=== PATIENT | male | born 1950 | race Caucasian/White ===

== ENCOUNTER 2025-07-12 11:36 | Emergency (ER) | payer MEDICARE, OTHER, SELFPAY ==
[2025-07-12 12:09] VITALS: BP 172/81; PULSE 74; RESP 16; TEMP 37.3; O2SAT 99; BMI 21.2
--- NOTE | 2025-07-12 14:23 | ED_ITS ---
HPI - Extremity Problem <Carissa Roy PA-C - Last Filed: 07/12/25 19:10> General Chief complaint: Extremity Problem,Nontraumatic Stated complaint: Left foot pain Time Seen by Provider: 07/12/25 11:39 Source: patient Mode of arrival: Family Vehicle History of Present Illness HPI Narrative: Mr. Tam is a very pleasant 75-year-old gentleman with no reported past medical history, taking no medications, who presents to the emergency department for left ankle pain x3 days. Patient states for 3 months he has been dealing with an ulcer on the lateral aspect of his left ankle and about 3 days ago he developed an ulcer on the medial aspect of his ankle. He is having pain with movement of the ankle and concern that these areas are infected. He reports that he started to feel ?sick? a few days ago which she describes as fatigue. Tried to see his primary care doctor for these concerns however the he can not see them until September. Denies chest pain, shortness of breath, fevers, trauma. 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 Related Data Previous Rx's ?Medication ?Instructions ?Recorded apixaban 5 mg tablet (Eliquis) See Rx Instructions .Ro [place] 07/12/25 .COMPLEX #74 tabs cephalexin 500 mg capsule 500 mg PO QID 7 days #28 cap s 07/12/25 Allergies Allergy/AdvReac Type Severity Reaction Status Date / Time No Known Drug Allergies Allergy Verified 07/12/25 12:14 Review of Systems <Carissa Roy PA-C - Last Filed: 07/12/25 19:10> Review of Systems ROS Unobtainable: All systems reviewed & are unremarkable except as noted in HPI and below Exam <Carissa Roy PA-C - Last Filed: 07/12/25 19:10> Narrative Exam Narrative: GENERAL: 75 year old patient appears stated age. Well-developed patient, in no acute distress. HEAD: Atraumatic. Normocephalic. EYES: No scleral icterus. No injection or drainage. NECK: Trachea midline. Cervical ROM intact. CARDIOVASCULAR: Regular rate and rhythm. RESPIRATORY: ?Nonlabored respirations. ?Speaking in clear, full sentences. ?Clear to auscultation. Breath sounds equal bilaterally. No wheezes, rales, or rhonchi. ? EXTREMITIES: Mild edema of the left lower extremity around the medial and lateral malleolus. No proximal edema or pitting edema of the leg. Just distal to the lateral and medial malleolus there are superficial ulcerations, however the medial ulceration does have some minimal surrounding erythema and tenderness, no active drainage. No erythema or streaking up the leg. 2+ DP and PT pulses bilaterally with brisk cap refill in the toes. Patient does have some chronic darkening of the skin on the left lower extremity. NEURO: AOx3. ?Clear speech. ?Moves all 4 extremities appropriately. Initial Vital Signs Initial Vital Signs: Vital Signs Temperature 99.2 F 07/12/25 12:09 Pulse Rate 74 07/12/25 12:09 Respiratory Rate 16 07/12/25 12:09 Blood Pressure 172/81 H 07/12/25 12:09 Pulse Oximetry 99 07/12/25 12:09 Oxygen Delivery Method Room Air 07/12/25 12:09 <Adalberto Rubio MD - Last Filed: 07/13/25 07:03> Initial Vital Signs Initial Vital Signs: Vital Signs Temperature 99.2 F 07/12/25 12:09 Pulse Rate 74 07/12/25 12:09 Respiratory Rate 16 07/12/25 12:09 Blood Pressure 172/81 H 07/12/25 12:09 Pulse Oximetry 99 07/12/25 12:09 Oxygen Delivery Method Room Air 07/12/25 12:09 Course <Carissa Roy PA-C - Last Filed: 07/12/25 19:10> Orders Ordered: ED Orders 07/12/25 14:34 US periph venous low extrem lt Stat XR ankle LT min 3V Stat 07/12/25 14:39 Consult to Wound Care Stat 07/12/25 15:44 CBC Auto Diff [Complete Blood Count AUTO DIFF] Stat CMP [Comprehensive Metabolic Panel] Stat PT [Prothrombin Time INR] Stat PTT Partial Thromboplastin [place] Stat Vital Signs Vital signs: Vital Signs - 8 hr 07/12/25 12:09 07/12/25 17:49 Temperature 99.2 F Pulse Rate 74 58 L Respiratory Rate 16 16 Blood Pressure 172/81 H 179/79 H Pulse Oximetry 99 98 Oxygen Delivery Method Room Air Room Air <Adalberto Rubio MD - Last Filed: 07/13/25 07:03> Orders Ordered: ED Orders 07/12/25 14:34 US periph venous low extrem lt Stat XR ankle LT min 3V Stat 07/12/25 14:39 Consult to Wound Care Stat 07/12/25 15:44 CBC Auto Diff [Complete Blood Count AUTO DIFF] Stat CMP [Comprehensive Metabolic Panel] Stat PT [Prothrombin Time INR] Stat PTT Partial Thromboplastin [place] Stat Vital Signs Vital signs: Vital Signs - 8 hr 07/12/25 12:09 07/12/25 17:49 Temperature 99.2 F Pulse Rate 74 58 L Respiratory Rate 16 16 Blood Pressure 172/81 H 179/79 H Pulse Oximetry 99 98 Oxygen Delivery Method Room Air Room Air MDM - Extremity (Nontraumatic) <Carissa Roy PA-C - Last Filed: 07/12/25 19:10> Lab Data 07/12/25 15:44 07/12/25 15:44 Labs: Lab Results 07/12/25 Range/Units 15:44 WBC 5.5 (4.5-11.0) X10^3/uL RBC 4.60 (4.5-5.9) X10^6/uL Hgb 13.5 (13.5-17.5) g/dL Hct 40.0 L (41-53) % MCV 86.9 (80-100) fL MCH 29.4 (26-34) PG MCHC 33.9 (30-36) % RDW 14.4 (11.6-14.8) % Plt Count 238 (150-400) X10^3/uL Neut % (Auto) 63.2 (50-75) % Lymph % (Auto) 22.6 L (25-40) % [place] % (Auto) 10.7 (3-14) % Eos % (Auto) 1.9 L (2-4) % Baso % (Auto) 1.6 (0-2) % Neut # (Auto) 3500 (8547-2091) /uL Lymph # (Auto) 1200 (9783-0903) /uL [place] # (Auto) 600 (0-900) /uL Eos # (Auto) 100 (0-450) /uL Baso # (Auto) 100 (0-100) /uL PT 12.4 (9.4-12.5) SECONDS INR 1.1 (0.9-1.3) APTT 28 (25.1-36.5) SECONDS Sodium 140 (137-145) mmol/L Potassium 4.3 (3.4-5.1) mmol/L Chloride 105 (98-107) mmol/L Carbon Dioxide 28 (22-32) mmol/L BUN 12 (9-20) mg/dL Creatinine 0.93 (0.66-1.25) mg/dL Estimated GFR > 60 (>60) mL/min BUN/Creatinine Ratio 12.9 (6-22) Glucose 89 (70-99) mg/dL Calcium 9.0 (8.4-10.2) mg/dL Total Bilirubin 0.4 (0.2-1.3) mg/dL AST 22 (17-59) IU/L ALT 12 (<50) IU/L Alkaline Phosphatase 52 (38-126) U/L Total Protein 7.2 (6.3-8.2) g/dL Albumin 4.1 (3.5-5.0) g/dL Globulin 3.1 (1.7-4.1) g/dL Albumin/Globulin Ratio 1.3 (1.0-2.8) Imaging Data LLE US: Radiologist's Impression: PROCEDURE: US PERIPH VENOUS LOW EXTREM LT INDICATIONS: dvt? pvd? cellulitis? unilateral pain and swelling TECHNIQUE: Real-time imaging, as well as color and pulse Doppler interrogation, were performed of the lower extremity deep veins from the inguinal ligament to the popliteal fossa, with documentation of the visualized calf veins. COMPARISON: [facility], CR, XR ANKLE LT MIN 3V, 07/12/2025, 14:30. FINDINGS: Nonocclusive, thread-like deep venous thrombosis can be seen involving the majority of the femoral vein as well as the popliteal vein. Distal lower extremity edema can be seen. IMPRESSION: Nonocclusive, throughout like deep venous thrombosis can be seen, which is likely chronic. Dictated by: Thai Poe M.D. on 07/12/2025 at 14:23 Approved by: Thai Poe M.D. on 07/12/2025 at 14:24 Left Ankle XR: Radiologist's Impression: PROCEDURE: XR ANKLE LT MIN 3V INDICATIONS: nontraumatic pain; medial and lateral ulcers TECHNIQUE: 3 views of the ankle were acquired. COMPARISON: None. FINDINGS: Bones: No fractures or dislocations. Ankle mortise is normally aligned. No suspicious bony lesions. The talar dome demonstrates no beka abnormality. Soft tissues: No tibiotalar joint effusion. Achilles tendon appears normal. IMPRESSION: No significant plain film abnormality is seen. Dictated by: Thai Poe M.D. on 07/12/2025 at 14:07 Approved by: Thai Poe M.D. on 07/12/2025 at 14:08 [facility] Narrative Medical decision making narrative: 75-year-old gentleman with no reported past medical history, taking no medications, who presents to the emergency department for left ankle pain x3 days. Differential Diagnosis includes but is not limited to peripheral vascular disease, DVT, cellulitis, skin ulcer, etc. On exam patient is in no acute distress, nontoxic appearing, vital signs appropriate except for mildly elevated blood pressure. His left lower extremity has some very minimal edema around the ankle however he does have superficial ulceration below the lateral malleolus and the medial malleolus, the ulceration around the medial malleolus is quite erythematous and tender. We will obtain x- ray left ankle, vascular ultrasound. Spoke with import/export analyst, it appears patient does have DVT, we will add on CBC, CMP, coags to check patient's baseline labs before initiating Eliquis. Ankle x-ray is normal. Left lower extremity peripheral ultrasound reveals nonocclusive thread-like deep venous thrombosis seen involving the majority of the femoral vein as well as the popliteal vein, which is likely chronic. Patient does not have significant left lower extremity edema concerning for May- Thurner syndrome. Discussed imaging with the attending ER physician, we will treat with Eliquis 10 mg b.i.d. x7 days followed by 5 mg b.i.d. we will also treat patient with cephalexin for suspected mild cellulitis surrounding medial malleolus ulcer, referral was also placed to wound care for follow up. Labs reveal normal WBC count, normal hemoglobin 13.5, normal platelets 238. Normal coags. Good renal function with a BUN 12, creatinine 0.93, GFR greater than 60. Discussed all lab work and imaging results with the patient. Both him and his verbalized understanding of treatment for both DVT and cellulitis. Discussed wound care, supportive therapy including rest, elevation. Discussed strict ER return precautions. They verbalized understanding of all information and happy with the plan. He is ambulatory and stable for discharge home. <Adalberto Rubio MD - Last Filed: 07/13/25 07:03> Lab Data Labs: Lab Results 07/12/25 Range/Units 15:44 WBC 5.5 (4.5-11.0) X10^3/uL RBC 4.60 (4.5-5.9) X10^6/uL Hgb 13.5 (13.5-17.5) g/dL Hct 40.0 L (41-53) % MCV 86.9 (80-100) fL MCH 29.4 (26-34) PG MCHC 33.9 (30-36) % RDW 14.4 (11.6-14.8) % Plt Count 238 (150-400) X10^3/uL Neut % (Auto) 63.2 (50-75) % Lymph % (Auto) 22.6 L (25-40) % Madison % (Auto) 10.7 (3-14) % Eos % (Auto) 1.9 L (2-4) % Baso % (Auto) 1.6 (0-2) % Neut # (Auto) 3500 (9426-0331) /uL Lymph # (Auto) 1200 (8897-9508) /uL Madison # (Auto) 600 (0-900) /uL Eos # (Auto) 100 (0-450) /uL Baso # (Auto) 100 (0-100) /uL PT 12.4 (9.4-12.5) SECONDS INR 1.1 (0.9-1.3) APTT 28 (25.1-36.5) SECONDS Sodium 140 (137-145) mmol/L Potassium 4.3 (3.4-5.1) mmol/L Chloride 105 (98-107) mmol/L Carbon Dioxide 28 (22-32) mmol/L BUN 12 (9-20) mg/dL Creatinine 0.93 (0.66-1.25) mg/dL Estimated GFR > 60 (>60) mL/min BUN/Creatinine Ratio 12.9 (6-22) Glucose 89 (70-99) mg/dL Calcium 9.0 (8.4-10.2) mg/dL Total Bilirubin 0.4 (0.2-1.3) mg/dL AST 22 (17-59) IU/L ALT 12 (<50) IU/L Alkaline Phosphatase 52 (38-126) U/L Total Protein 7.2 (6.3-8.2) g/dL Albumin 4.1 (3.5-5.0) g/dL Globulin 3.1 (1.7-4.1) g/dL Albumin/Globulin Ratio 1.3 (1.0-2.8) Discharge Plan Departure Patient Disposition: Home Clinical Impression: Deep vein thrombosis of lower extremity Qualifiers: Affected thrombotic vein of extremity: femoral Chronicity: chronic Laterality: left Qualified Code(s): I82.512 - Chronic embolism and thrombosis of left femoral vein Lower extremity ulceration Qualifiers: Laterality: left Non-pressure ulcer stage: limited to breakdown of skin Q ualified Code(s): L97.921 - Non-pressure chronic ulcer of unspecified part of left lower leg limited to breakdown of skin Cellulitis Qualifiers: Site of cellulitis: extremity Site of cellulitis of extremity: lower extremity Laterality: left Qualified Code(s): L03.116 - Cellulitis of left lower limb Instructions: DI for Cellulitis -- Adult, DI for Deep Vein Thrombosis Activity Restrictions/Additional Instructions: Dear Anel, Thank you for coming to the emergency department. Today you were evaluated for left lower leg swelling, pain, skin ulceration. I am treating you with a course of antibiotics to treat infection of the skin ulcers however I would also like you to follow up with wound care, Dr. Tellez. It is very important to keep these ulcers clean and covered. Ultrasound today did reveal a nonocclusive blood clot in the left leg. You have been prescribed Eliquis which is a blood thinner for this. It is very important to follow up with your primary care doctor for further management and evaluation of the blood clot. The emergency room prescribed 1 month however you will likely need a minimum of 3 months of this medication or possibly. Avoid deep massage of the left leg. Elevation, rest, compression can help. Return to the ER immediately if you develop chest pain, shortness of breath, fevers, worsening symptoms or any concerns. Please follow up with your primary care doctor within the next 2-3 days for ER follow-up. (If you do not have a PCP you can call [phone]. ?to schedule an appointment with an [facility] Primary Care Provider) IF YOU DEVELOP ANY NEW OR WORSENING SYMPTOMS, RETURN TO THE ER! Please read the attached instructions, they highlight more specific treatments and interventions for you at home. Thank you for letting me participate in your care, Carissa Roy PA-C Prescriptions: New Eliquis 5 mg tablet See Rx Instructions .ROUTE .COMPLEX Qty: 74 0RF Rx Instructions: Take 10 mg (2 tabs) twice daily for 7 days followed by 5 mg (one tab) twice daily for remainder. cephalexin 500 mg capsule 500 mg PO QID 7 Days Qty: 28 0RF Referrals: Hemanth Tellez MD [Physician, Wound Care] Referral Note: LLE ulcer Stand Alone Forms: Patient Portal/API ED Sign-out <Adalberto Rubio MD - Last Filed: 07/13/25 07:03> [facility] I was immediately available in the department for consultation. ?This documentation has been reviewed and I agree with assessment and plan. Supervised by Adalberto Rubio MD
--- NOTE | 2025-07-12 14:34 | DI.US.S_ITS ---
PROCEDURE: US PERIPH VENOUS LOW EXTREM LT INDICATIONS: dvt? pvd? cellulitis? unilateral pain and swelling TECHNIQUE: Real-time imaging, as well as color and pulse Doppler interrogation, were performed of the lower extremity deep veins from the inguinal ligament to the popliteal fossa, with documentation of the visualized calf veins. COMPARISON: [facility], CR, XR ANKLE LT MIN 3V, 07/12/2025, 14:30. FINDINGS: Nonocclusive, thread-like deep venous thrombosis can be seen involving the majority of the femoral vein as well as the popliteal vein. Distal lower extremity edema can be seen. IMPRESSION: Nonocclusive, throughout like deep venous thrombosis can be seen, which is likely chronic. Dictated by: Thai Peo M.D. on 07/12/2025 at 14:23 Approved by: Thai Poe M.D. on 07/12/2025 at 14:24
--- NOTE | 2025-07-12 14:34 | DI.RAD.S_ITS ---
PROCEDURE: XR ANKLE LT MIN 3V INDICATIONS: nontraumatic pain; medial and lateral ulcers TECHNIQUE: 3 views of the ankle were acquired. COMPARISON: None. FINDINGS: Bones: No fractures or dislocations. Ankle mortise is normally aligned. No suspicious bony lesions. The talar dome demonstrates no beka abnormality. Soft tissues: No tibiotalar joint effusion. Achilles tendon appears normal. IMPRESSION: No significant plain film abnormality is seen. Dictated by: Thai Poe M.D. on 07/12/2025 at 14:07 Approved by: Thai Poe M.D. on 07/12/2025 at 14:08
[2025-07-12 15:59] LABS: Add Manual Diff / Slide Review NO; Hematocrit 40.0 % (41-53); Hemoglobin 13.5 g/dL (13.5-17.5); Lymphocytes Absolute Auto 1200 /uL (1100-4500); Mean Corpuscular HGB Conc 33.9 % (30-36); Mean Corpuscular Hemoglobin 29.4 PG (26-34); Mean Corpuscular Volume 86.9 fL (80-100); Platelet Count 238 X10^3/uL (150-400)
[2025-07-12 16:03] LABS: INR 1.1 (0.9-1.3); Prothrombin Time 12.4 SECONDS (9.4-12.5)
[2025-07-12 16:06] LABS: PTT Partial Thromboplastin Tim 28 SECONDS (25.1-36.5)
[2025-07-12 16:07] LABS: Alanine Aminotransferase 12 IU/L (<50); Albumin 4.1 g/dL (3.5-5.0); Albumin Globulin Ratio 1.3 (1.0-2.8); Alkaline Phosphatase 52 U/L (38-126); Blood Urea Nitrogen 12 mg/dL (9-20); Calcium 9.0 mg/dL (8.4-10.2); Carbon Dioxide 28 mmol/L (22-32); Chloride 105 mmol/L (98-107); Estimated Glomerular Filt Rate > 60 mL/min (>60); Globulin 3.1 g/dL (1.7-4.1); Glucose 89 mg/dL (70-99); HEMOLYSIS < 15 (0-50); Potassium 4.3 mmol/L (3.4-5.1); Sodium 140 mmol/L (137-145); Total Protein 7.2 g/dL (6.3-8.2)
[2025-07-12 17:49] VITALS: BP 179/79; PULSE 58; RESP 16; O2SAT 98
--- NOTE | 2025-07-12 19:31 | CM.SWNOTE ---
ED AIR PURIFIER SERVICER Note: AIR PURIFIER SERVICER assisted ED Provider with Wound Care referral placement, sent referral via fax to Wound Care Clinic. MITZY Lozada
== END 2025-07-12 17:50 | disposition home or self-care (01) ==
PROVIDERS: Emergency Provider Physician Assistant
DX: I82.412 Acute embolism and thrombosis of left femoral vein (principal); L97.921 Non-pressure chronic ulcer of unspecified part of left lower leg limited to breakdown of skin; L03.116 Cellulitis of left lower limb
CPT/HCPCS: 73610; 80053; 85025; 85610; 85730; 93971; 99281; 99284

== ENCOUNTER → 2025-08-09 06:41 | Outpatient (CLI) | payer MEDICARE, OTHER, SELFPAY ==
--- NOTE | 2025-08-09 06:42 | DI.US.S_ITS ---
PROCEDURE: US ARTERIAL DUPLEX LE LT INDICATIONS: CELLULITIS/PAIN. ?ARTERIAL CLOT. H/O LEFT LEG DVT AND LEFT FOOT WOUND. TECHNIQUE: Color and pulse Doppler interrogation was performed of the left lower extremity arterial system, with image documentation. COMPARISON: None. FINDINGS: Common femoral artery: 124 cm/sec, with triphasic flow. Deep femoral artery: 104 cm/sec, with triphasic flow. Proximal superficial femoral artery: 124 cm/sec, with triphasic flow. Mid superficial femoral artery: 107 cm/sec, with triphasic flow. Distal superficial femoral artery: 82 cm/sec, with triphasic flow. Popliteal artery: 99 cm/sec, with triphasic flow. Posterior tibial artery: 101 cm/sec, with triphasic flow. Dorsalis pedis: 104 cm/sec, with triphasic flow. [place]-scale imaging description: Wall calcifications are present without significant stenosis. Patent vessels with normal waveforms. IMPRESSION: Patent left lower extremity arterial vessels with normal waveforms and mild plaque. Dictated by: Rubin Murillo M.D. on 08/09/2025 at 9:48 Approved by: Rubin Murillo M.D. on 08/09/2025 at 9:50
== END ==
PROVIDERS: PCP Physician Assistant Medical; Referring Provider Physician Assistant Medical; Visit Provider Physician Assistant Medical
DX: L03.116 Cellulitis of left lower limb (principal); I70.202 Unspecified atherosclerosis of native arteries of extremities, left leg; M79.605 Pain in left leg
CPT/HCPCS: 93926